=== PATIENT | female | born 1945 | race Caucasian/White ===

== ENCOUNTER 2020-07-02 11:40 | Emergency (ER) | payer MEDICARE ==
[2020-07-02 11:47] VITALS: TEMP 98.3
[2020-07-02 12:20] LABS: Basophils % (A) 1 %; Eosinophils # (A) 0.3 k/uL (0-0.7); Eosinophils % (A) 5 %; HGB 10.4 gm/dL (11.4-16.0); Hypochromasia Marked; Lymphocytes # (A) 1.9 k/uL (1.0-4.8); Lymphocytes % (A) 33 %; MCH 23.3 pg (25.0-35.0); MCHC 30.6 g/dL (31.0-37.0); MCV 76.2 fL (80.0-100.0); Mean Platelet Volume 8.6; Microcytosis Slight; Monocytes # (A) 0.4 k/uL (0-1.0); Monocytes % (A) 7 %; Neutrophils % (A) 52 %; Platelet Count 262 k/uL (150-450); RBC 4.46 m/uL (3.80-5.40); RDW 15.4 % (11.5-15.5); WBC 5.7 k/uL (3.8-10.6)
[2020-07-02 12:29] LABS: INR 0.9 (<1.2); Partial Thromboplastin Time 22.7 sec (22.0-30.0); Prothrombin Time 9.4 sec (9.0-12.0)
[2020-07-02 12:31] LABS: Albumin 3.8 g/dL (3.5-5.0); Calcium 8.5 mg/dL (8.4-10.2); Magnesium 1.9 mg/dL (1.6-2.3); Potassium 4.2 mmol/L (3.5-5.1); Total Bilirubin 0.7 mg/dL (0.2-1.3); Total Protein 6.9 g/dL (6.3-8.2)
[2020-07-02] MEDS ORDERED: ASPIRIN 325 MG TAB PO STA (12:31)
--- NOTE | 2020-07-02 12:37 | ED ---
General Adult HPI - General Chief complaint: Chest Pain Stated complaint: Chest pain Time Seen by Provider: 07/02/20 12:09 Source: patient, RN notes reviewed, old records reviewed Mode of arrival: wheelchair Limitations: no limitations - History of Present Illness Initial comments: 74-year-old female presenting for evaluation of left shoulder and arm pain. Patient has had symptoms for the past one week. She was urged to present to the emergency department by her daughter who is concerned that this may be related to her heart. She denies any chest pain. The pain stops at her clavicle. It is worse with movement. He specific injury but states she may have injured it while carrying groceries. She denies any associated symptoms of nausea vomiting or diaphoresis. No abdominal pain. No known history of coronary artery disease. - Related Data Allergies Allergy/AdvReac Type Severity Reaction Status Date / Time Latex, Natural Rubber Allergy Rash/Hives Verified 07/02/20 11:47 Review of Systems ROS Statement: Those systems with pertinent positive or pertinent negative responses have been documented in the HPI. ROS Other: All systems not noted in ROS Statement are negative. Past Medical History Past Medical History: Hypertension History of Any Multi-Drug Resistant Organisms: None Reported Past Surgical History: Bariatric Surgery, Cholecystectomy, Hysterectomy Past Psychological History: No Psychological Hx Reported Smoking Status: Never smoker Past Alcohol Use History: None Reported Past Drug Use History: None Reported General Exam Limitations: no limitations General appearance: alert, in no apparent distress Head exam: Present: atraumatic, normocephalic Eye exam: Present: normal appearance, PERRL ENT exam: Present: normal exam Neck exam: Present: normal inspection. Absent: tenderness, meningismus Respiratory exam: Present: normal lung sounds bilaterally. Absent: respiratory distress, wheezes Cardiovascular Exam: Present: regular rate, normal rhythm GI/Abdominal exam: Present: soft. Absent: distended, tenderness, guarding Extremities exam: Present: normal inspection, full ROM (Mild tenderness with range of motion of the left shoulder at the clavicle), normal capillary refill, other (Left radial pulses 2+ and symmetric) Neurological exam: Present: alert, oriented X3, CN II-XII intact. Absent: motor sensory deficit Psychiatric exam: Present: normal affect, normal mood Skin exam: Present: warm, dry, intact. Absent: cyanosis, diaphoretic Course Vital Signs 07/02/20 07/02/20 11:44 11:56 Temperature 98.3 F Pulse Rate 68 Respiratory 20 Rate Blood Pressure 209/79 190/82 O2 Sat by Pulse 99 Oximetry EKG Findings - EKG Comments: EKG Findings:: EKG: Bradycardia, rate 59, NV interval 190, QRS duration 86, QTC 411, no ST segment elevation, no definitive signs of ischemia. Medical Decision Making - Medical Decision Making 74-year-old female with left shoulder pain, pain worse with movement. No central chest pain. There was concern that this could be an anginal equivalent and this is why the patient presented to the emergency department. EKG is sinus rhythm without ischemic changes, no ST segment elevation. Chest x-ray clear of acute cardiopulmonary disease. X-ray of the left shoulder does show a rotator cuff tendinitis and osteoarthritis, no acute fracture dislocation. I did offer this patient observation for serial cardiac enzymes, cardiology consultation versus home with close outpatient follow-up. Patient and daughter prefer home with outpatient follow-up. I am reassured by the testing and believe this symptom to be muscular skeletal. - Lab Data Result diagrams: 07/02/20 12:14 07/02/20 12:14 Lab Results 07/02/20 07/02/20 07/02/20 Range/Units 12:14 12:14 12:14 WBC 5.7 (3.8-10.6) k/uL RBC 4.46 (3.80-5.40) m/uL Hgb 10.4 L (11.4-16.0) gm/dL Hct 34.0 (34.0-46.0) % MCV 76.2 L (80.0-100.0) fL MCH 23.3 L (25.0-35.0) pg MCHC 30.6 L (31.0-37.0) g/dL RDW 15.4 (11.5-15.5) % Plt Count 262 (150-450) k/uL MPV 8.6 Neutrophils % 52 % Lymphocytes % 33 % Monocytes % 7 % Eosinophils % 5 % Basophils % 1 % Neutrophils # 3.0 (1.3-7.7) k/uL Lymphocytes # 1.9 (1.0-4.8) k/uL Monocytes # 0.4 (0-1.0) k/uL Eosinophils # 0.3 (0-0.7) k/uL Basophils # 0.0 (0-0.2) k/uL Hypochromasia Marked Microcytosis Slight PT 9.4 (9.0-12.0) sec INR 0.9 (<1.2) APTT 22.7 (22.0-30.0) sec Sodium 136 L (137-145) mmol/L Potassium 4.2 (3.5-5.1) mmol/L Chloride 108 H (98-107) mmol/L Carbon Dioxide 25 (22-30) mmol/L Anion Gap 3 mmol/L BUN 14 (7-17) mg/dL Creatinine 0.79 (0.52-1.04) mg/dL Est GFR (CKD-EPI)AfAm 86 (>60 ml/min/1.73 sqM) Est GFR (CKD-EPI)NonAf 75 (>60 ml/min/1.73 sqM) Glucose 114 H (74-99) mg/dL Calcium 8.5 (8.4-10.2) mg/dL Magnesium 1.9 (1.6-2.3) mg/dL Total Bilirubin 0.7 (0.2-1.3) mg/dL AST 23 (14-36) U/L ALT 15 (4-34) U/L Alkaline Phosphatase 105 (38-126) U/L Troponin I (0.000-0.034) ng/mL NT-Pro-B Natriuret Pep pg/mL Total Protein 6.9 (6.3-8.2) g/dL Albumin 3.8 (3.5-5.0) g/dL 07/02/20 07/02/20 Range/Units 12:14 12:14 WBC (3.8-10.6) k/uL RBC (3.80-5.40) m/uL Hgb (11.4-16.0) gm/dL Hct (34.0-46.0) % MCV (80.0-100.0) fL MCH (25.0-35.0) pg MCHC (31.0-37.0) g/dL RDW (11.5-15.5) % Plt Count (150-450) k/uL MPV Neutrophils % % Lymphocytes % % Monocytes % % Eosinophils % % Basophils % % Neutrophils # (1.3-7.7) k/uL Lymphocytes # (1.0-4.8) k/uL Monocytes # (0-1.0) k/uL Eosinophils # (0-0.7) k/uL Basophils # (0-0.2) k/uL Hypochromasia Microcytosis PT (9.0-12.0) sec INR (<1.2) APTT (22.0-30.0) sec Sodium (137-145) mmol/L Potassium (3.5-5.1) mmol/L Chloride (98-107) mmol/L Carbon Dioxide (22-30) mmol/L Anion Gap mmol/L BUN (7-17) mg/dL Creatinine (0.52-1.04) mg/dL Est GFR (CKD-EPI)AfAm (>60 ml/min/1.73 sqM) Est GFR (CKD-EPI)NonAf (>60 ml/min/1.73 sqM) Glucose (74-99) mg/dL Calcium (8.4-10.2) mg/dL Magnesium (1.6-2.3) mg/dL Total Bilirubin (0.2-1.3) mg/dL AST (14-36) U/L ALT (4-34) U/L Alkaline Phosphatase (38-126) U/L Troponin I <0.012 (0.000-0.034) ng/mL NT-Pro-B Natriuret Pep 108 pg/mL Total Protein (6.3-8.2) g/dL Albumin (3.5-5.0) g/dL Disposition Clinical Impression: Hypertension, Osteoarthritis of left shoulder Disposition: HOME SELF-CARE Condition: Fair Instructions (If sedation given, give patient instructions): Chest Pain (ED), Rotator Cuff Injury (ED), Osteoarthritis (ED), Hypertension (ED) Additional Instructions: Please monitor your blood pressure at home, create a long blood pressures and follow up with her primary care physician. Is patient prescribed a controlled substance at d/c from ED?: No Referrals: None,Stated [REFERRING] - 1-2 days Juliano Kumar MD [STAFF PHYSICIAN] - 1-2 days Time of Disposition: 13:08
--- NOTE | 2020-07-02 12:46 | XR ---
EXAMINATION TYPE: XR chest 2V DATE OF EXAM: 07/02/2020 COMPARISON: None HISTORY: 74-year-old female with chest pain TECHNIQUE: PA and lateral views FINDINGS: Heart normal size. Aorta and pulmonary vasculature within normal limits. No consolidation or pleural effusion. Subtle rounded retrocardiac density. IMPRESSION: No acute cardiopulmonary process. Possible small hiatal hernia.
--- NOTE | 2020-07-02 12:47 | XR ---
EXAMINATION TYPE: XR shoulder complete LT DATE OF EXAM: 07/02/2020 Comparison: None Clinical History: [age] year-old female pain Findings: Mild degenerative change at the AC joint. Subacromial space is preserved. No tendinous or bursal calc ifications. Bony irregularity and sclerosis of the greater tuberosity. Mild degenerative spurring at the inferior humeral head. No acute fracture, subluxation, or dislocation. Impression: 1. Bony changes compatible with chronic rotator cuff tendinopathy. 2. Mild degenerative spurring at the glenohumeral joint. 3. No acute osseous abnormality seen.
[2020-07-02 13:36] VITALS: BP 198/87; PULSE 57; RESP 17
== END 2020-07-02 13:41 | disposition home or self-care (01) ==
LOC: EC 11:40
DX: I10 Essential (primary) hypertension (principal); M19.012 Primary osteoarthritis, left shoulder; M77.8 Other enthesopathies, not elsewhere classified; Z91.040 Latex allergy status; Z98.84 Bariatric surgery status
CPT/HCPCS: 36415; 71046; 80053; 83735; 83880; 84484; 85025; 85610; 85730; 93005; 99285

== ENCOUNTER 2020-09-23 10:55 | Emergency (ER) | payer MEDICARE, OTHER ==
[2020-09-23] MEDS ORDERED: KETOROLAC 15 MG/ML 1 ML VIAL IM STA (11:19)
--- NOTE | 2020-09-23 11:36 | XR ---
EXAMINATION TYPE: XR knee complete RT DATE OF EXAM: 09/23/2020 COMPARISON: None HISTORY: Pain twisted knee TECHNIQUE: Three-view right knee FINDINGS: There is loss of the medial compartment joint space. Medial tibial plateau and femoral cond ylar spurring is present. Bipartite patella appears to be present. There is loss of the patellofemora l joint space. No joint effusion is evident. IMPRESSION: 1. Loss of the medial compartment joint space and patellofemoral joint space compatible with moderat e to advanced degenerative joint changes. 2. No acute osseous abnormality evident.
--- NOTE | 2020-09-23 11:44 | ED ---
General Adult HPI - General Chief complaint: Extremity Injury, Lower Stated complaint: knee pain Time Seen by Provider: 09/23/20 11:03 Source: patient Mode of arrival: wheelchair Limitations: no limitations - History of Present Illness Initial comments: 75-year-old female with a past medical history of hyperlipidemia, hypertension, anemia presents to the emergency room for a chief complaint of right knee pain. Patient reports that yesterday she was trying to get her out of bed. States she was pulling him and twisted her right knee. Patient reports that she has difficulty walking on the knee. She is able to bend her knee however this does elicit pain. No fevers or chills. No previous knee surgeries.Patient has no other complaints at this time including shortness of breath, chest pain, abdominal pain, nausea or vomiting, headache, or visual changes. - Related Data Allergies Allergy/AdvReac Type Severity Reaction Status Date / Time Latex, Natural Rubber Allergy Rash/Hives Verified 09/23/20 11:01 Review of Systems ROS Statement: Those systems with pertinent positive or pertinent negative responses have been documented in the HPI. ROS Other: All systems not noted in ROS Statement are negative. Past Medical History Past Medical History: Hyperlipidemia, Hypertension Additional Past Medical History / Comment(s): Anemia History of Any Multi-Drug Resistant Organisms: None Reported Past Surgical History: Bariatric Surgery, Cholecystectomy, Hysterectomy Past Psychological History: No Psychological Hx Reported Smoking Status: Never smoker Past Alcohol Use History: None Reported Past Drug Use History: None Reported General Exam Limitations: no limitations General appearance: alert, in no apparent distress Head exam: Present: atraumatic, normocephalic, normal inspection Eye exam: Present: normal appearance, PERRL, EOMI. Absent: scleral icterus, conjunctival injection ENT exam: Present: normal exam, mucous membranes moist Neck exam: Present: normal inspection, full ROM. Absent: tenderness Respiratory exam: Present: normal lung sounds bilaterally. Absent: respiratory distress, wheezes Cardiovascular Exam: Present: regular rate, normal rhythm, normal heart sounds GI/Abdominal exam: Present: soft, normal bowel sounds. Absent: distended, tenderness Extremities exam: Present: tenderness (Tenderness noted to the lateral aspect of the right knee.), normal capillary refill (Capillary refill less than 2 seconds, DP pulse 2+.), other (Sensation intact.). Absent: full ROM (Patient able to flex right knee 45, extension to neutral position.), joint swelling (No significant edema noted on the knee. No erythema or increased warmth.) Course Vital Signs 09/23/20 10:57 Temperature 98.6 F Pulse Rate 60 Respiratory 20 Rate Blood Pressure 198/70 O2 Sat by Pulse 99 Oximetry Medical Decision Making - Medical Decision Making Vitals are stable. Patient is hypertensive likely secondary to pain. Patient injured her knee yesterday when trying to picker tender her . Physical exam does reveal difficulty ambulating. Patient is able to flex knee to 45 and extension to neutral position. No erythema or increased warmth of the knee. Neurovascular status intact right lower extremity. X-ray of the right knee does reveal loss of the medial compartment joint space and patellofemoral joint space compatible with moderate to advanced degenerative joint changes. No acute osseous abnormality evident. At this time patient will be wrapped with an Andriy wrap. She will follow-up with orthopedics. Daughter can help her at home for pain. She will return to the emergency room for any worsening symptoms. Disposition Clinical Impression: Knee pain, right Disposition: HOME SELF-CARE Condition: Good Instructions (If sedation given, give patient instructions): Knee Pain (ED) Additional Instructions: Please take Motrin or Tylenol for pain. Please follow-up with the orthopedics by calling today for earliest appointment. Use Andriy wrap as needed. Return for any other worsening symptoms. Is patient prescribed a controlled substance at d/c from ED?: No Referrals: Nonstaff,Physician [Primary Care Provider] - 1-2 days Florentino Kurtz MD [STAFF PHYSICIAN] - 1-2 days Time of Disposition: 11:43
[2020-09-23 12:33] VITALS: BP 138/61; PULSE 61; RESP 16; TEMP 98.1
== END 2020-09-23 12:30 | disposition home or self-care (01) ==
LOC: EC 10:55
DX: M25.561 Pain in right knee (principal); R26.2 Difficulty in walking, not elsewhere classified; Z91.040 Latex allergy status
CPT/HCPCS: 73562; 99283; 96372; J1885

== ENCOUNTER 2020-11-11 06:13 | Observation (INO) | payer MEDICARE, OTHER ==
[2020-11-11] MEDS ORDERED: PANTOPRAZOLE 40 MG/10 ML VIAL IVP STA (06:20)
[2020-11-11 06:37] LABS: Anisocytosis Slight; Basophils % (A) 0 %; Eosinophils # (A) 0.1 k/uL (0-0.7); Eosinophils % (A) 1 %; HCT 30.5 % (34.0-46.0); Hypochromasia Slight; Lymphocytes # (A) 1.1 k/uL (1.0-4.8); Lymphocytes % (A) 8 %; MCH 24.6 pg (25.0-35.0); MCHC 32.8 g/dL (31.0-37.0); Microcytosis Slight; Monocytes # (A) 0.7 k/uL (0-1.0); Monocytes % (A) 5 %; Neutrophils # (A) 11.4 k/uL (1.3-7.7); Neutrophils % (A) 85 %; Platelet Count 337 k/uL (150-450); RBC 4.06 m/uL (3.80-5.40); RDW 16.3 % (11.5-15.5); WBC 13.4 k/uL (3.8-10.6)
[2020-11-11 06:47] LABS: Albumin 2.6 g/dL (3.5-5.0); Calcium 8.4 mg/dL (8.4-10.2); Magnesium 1.6 mg/dL (1.6-2.3); Total Bilirubin 0.7 mg/dL (0.2-1.3); Total Protein 5.4 g/dL (6.3-8.2)
[2020-11-11 07:09] LABS: INR 0.9 (<1.2); Prothrombin Time 10.2 sec (9.0-12.0)
[2020-11-11 07:18] LABS: Partial Thromboplastin Time 20.4 sec (22.0-30.0)
--- NOTE | 2020-11-11 07:26 | ED ---
GI Bleed HPI - General Chief complaint: GI Bleed Stated complaint: GI Bleed Time Seen by Provider: 11/11/20 06:16 Source: patient, EMS Mode of arrival: EMS Limitations: no limitations - History of Present Illness Initial comments: 75-year-old female patient presents to the emergency department today for evaluation of dizziness and weakness. Patient also had an episode of bright red bloody vomitus. States she does have a history of gastric ulcer and did run out of her medication this week. Denies history of GI bleed. Denies use of anticoagulant or antiplatelet medications. Denies any abdominal pain. Denies dark, black, or bloody stools. Reports she feels dizzy especially when sitting up or standing. Patient denies any recent rash, fever, chills, cough, shortness of breath, chest pain, back pain, numbness, tingling, dizziness, weakness, he maturia, dysuria, urinary urgency, urinary frequency, headache, visual changes, or any other complaints. Patient apparently did have low blood pressures in EMS. - Related Data Home Medications Medication Instructions Recorded Confirmed Ascorbic Acid [Vitamin C] 1,000 mg PO DAILY 11/11/20 11/11/20 Cholecalciferol [Vitamin D3 (25 50 mcg PO DAILY 11/11/20 11/11/20 Mcg = 1000 Iu)] Enalapril [Vasotec] 5 mg PO BID 11/11/20 11/11/20 Fluticasone Nasal [place] [Flonase 1 - 2 spr EA NOSTRIL DAILY 11/11/20 11/11/20 Nasal [place]] Iron Polysaccharide Complex 150 mg PO Q48H 11/11/20 11/11/20 [Ferrex 150] Loratadine [Claritin] 10 mg PO DAILY 11/11/20 11/11/20 Menthol [Biofreeze] 1 applic TOPICAL BID PRN 11/11/20 11/11/20 Rosuvastatin [Crestor] 10 mg PO DAILY 11/11/20 11/11/20 Zinc 50 mg PO DAILY 11/11/20 11/11/20 amLODIPine [Norvasc] 2.5 mg PO DAILY 11/11/20 11/11/20 guaiFENesin-DM 600/30MG [Mucinex 1 tab PO Q12HR 11/11/20 11/11/20 Dm] Allergies Allergy/AdvReac Type Severity Reaction Status Date / Time Latex, Natural Rubber Allergy Rash/Hives Verified 11/11/20 07:33 hydrocodone [From Vicodin] AdvReac Nausea Verified 11/11/20 07:33 Review of Systems ROS Statement: Those systems with pertinent positive or pertinent negative responses have been documented in the HPI. ROS Other: All systems not noted in ROS Statement are negative. Past Medical History Past Medical History: Hyperlipidemia, Hypertension Additional Past Medical History / Comment(s): Anemia History of Any Multi-Drug Resistant Organisms: None Reported Past Surgical History: Bariatric Surgery, Cholecystectomy, Hysterectomy Past Psychological History: No Psychological Hx Reported Smoking Status: Never smoker Past Alcohol Use History: None Reported Past Drug Use History: None Reported General Exam Limitations: no limitations General appearance: alert, in no apparent distress, other (This is a well- developed, well-nourished adult female patient in no acute distress. Vital signs upon presentation are temperature 97.8F, pulse 94, respirations 16, blood pressure 101/51, pulse ox 100% on room air.) Eye exam: Present: normal appearance, PERRL, EOMI. Absent: scleral icterus, conjunctival injection, periorbital swelling ENT exam: Present: normal exam, normal oropharynx, mucous membranes moist Respiratory exam: Present: normal lung sounds bilaterally. Absent: respiratory distress, wheezes, rales, rhonchi, stridor Cardiovascular Exam: Present: regular rate, normal rhythm, normal heart sounds. Absent: systolic murmur, diastolic murmur, rubs, gallop, clicks GI/Abdominal exam: Present: soft, normal bowel sounds. Absent: distended, tende rness, guarding, rebound, rigid Neurological exam: Present: alert, oriented X3, CN II-XII intact Psychiatric exam: Present: normal affect, normal mood Skin exam: Present: warm, dry, intact, pallor. Absent: rash Course Vital Signs 11/11/20 11/11/20 11/11/20 06:17 06:23 07:34 Temperature 97.8 F Pulse Rate 94 82 71 Respiratory 16 18 18 Rate Blood Pressure 101/51 123/53 118/54 O2 Sat by Pulse 100 100 98 Oximetry Medical Decision Making - Medical Decision Making 75-year-old male patient presented to the emergency department today for evaluation of dizziness and weakness. Did have one episode of bright red bloody vomitus. Does have history of ulcer. Physical examination revealed soft nontender abdomen. Vital signs remained stable while in the emergency department. Apparently she did have a couple low blood pressures on EMS. Labs reviewed and did reveal hemoglobin 10.0. Coags normal. She was given IV Protonix and IV fluids. Type and screen. She'll be admitted to the hospital for upper GI bleed. GI consulted. Case discussed with my attending Dr. Christianson. - Lab Data Result diagrams: 11/11/20 06:28 11/11/20 06:28 Lab Results 11/11/20 11/11/20 11/11/20 Range/Units 06:24 06:25 06:28 WBC 13.4 H (3.8-10.6) k/uL RBC 4.06 (3.80-5.40) m/uL Hgb 10.0 L (11.4-16.0) gm/dL Hct 30.5 L (34.0-46.0) % MCV 75.0 L (80.0-100.0) fL MCH 24.6 L (25.0-35.0) pg MCHC 32.8 (31.0-37.0) g/dL RDW 16.3 H (11.5-15.5) % Plt Count 337 (150-450) k/uL MPV 7.0 Neutrophils % 85 % Lymphocytes % 8 % Monocytes % 5 % Eosinophils % 1 % Basophils % 0 % Neutrophils # 11.4 H (1.3-7.7) k/uL Lymphocytes # 1.1 (1.0-4.8) k/uL Monocytes # 0.7 (0-1.0) k/uL Eosinophils # 0.1 (0-0.7) k/uL Basophils # 0.0 (0-0.2) k/uL Hypochromasia Slight Anisocytosis Slight Microcytosis Slight PT (9.0-12.0) sec INR (<1.2) APTT (22.0-30.0) sec Sodium (137-145) mmol/L Potassium (3.5-5.1) mmol/L Chloride (98-107) mmol/L Carbon Dioxide (22-30) mmol/L Anion Gap mmol/L BUN (7-17) mg/dL Creatinine (0.52-1.04) mg/dL Est GFR (CKD-EPI)AfAm (>60 ml/min/1.73 sqM) Est GFR (CKD-EPI)NonAf (>60 ml/min/1.73 sqM) Glucose (74-99) mg/dL Calcium (8.4-10.2) mg/dL Magnesium (1.6-2.3) mg/dL Total Bilirubin (0.2-1.3) mg/dL AST (14-36) U/L ALT (4-34) U/L Alkaline Phosphatase (38-126) U/L Troponin I (0.000-0.034) ng/mL Total Protein (6.3-8.2) g/dL Albumin (3.5-5.0) g/dL Lipase (23-300) U/L Blood Type A Positive Blood Type Confirm A Positive Blood Type Recheck No Previous Record Bld Type Recheck Status CABO Indicated Antibody Screen NEGATIVE Spec Expiration Date 11/14/2020 - 232711/11/20 11/11/20 11/11/20 Range/Units 06:28 06:28 06:28 WBC (3.8-10.6) k/uL RBC (3.80-5.40) m/uL Hgb (11.4-16.0) gm/dL Hct (34.0-46.0) % MCV (80.0-100.0) fL MCH (25.0-35.0) pg MCHC (31.0-37.0) g/dL RDW (11.5-15.5) % Plt Count (150-450) k/uL MPV Neutrophils % % Lymphocytes % % Monocytes % % Eosinophils % % Basophils % % Neutrophils # (1.3-7.7) k/uL Lymphocytes # (1.0-4.8) k/uL Monocytes # (0-1.0) k/uL Eosinophils # (0-0.7) k/uL Basophils # (0-0.2) k/uL Hypochromasia Anisocytosis Microcytosis PT 10.2 (9.0-12.0) sec INR 0.9 (<1.2) APTT 20.4 L (22.0-30.0) sec Sodium 129 L (137-145) mmol/L Potassium 4.0 (3.5-5.1) mmol/L Chloride 99 (98-107) mmol/L Carbon Dioxide 20 L (22-30) mmol/L Anion Gap 10 mmol/L BUN 12 (7-17) mg/dL Creatinine 0.91 (0.52-1.04) mg/dL Est GFR (CKD-EPI)AfAm 71 (>60 ml/min/1.73 sqM) Est GFR (CKD-EPI)NonAf 62 (>60 ml/min/1.73 sqM) Glucose 225 H (74-99) mg/dL Calcium 8.4 (8.4-10.2) mg/dL Magnesium 1.6 (1.6-2.3) mg/dL Total Bilirubin 0.7 (0.2-1.3) mg/dL AST 21 (14-36) U/L ALT 11 (4-34) U/L Alkaline Phosphatase 88 (38-126) U/L Troponin I 0.030 (0.000-0.034) ng/mL Total Protein 5.4 L (6.3-8.2) g/dL Albumin 2.6 L (3.5-5.0) g/dL Lipase 120 (23-300) U/L Blood Type Blood Type Confirm Blood Type Recheck Bld Type Recheck Status Antibody Screen Spec Expiration Date - EKG Data -: EKG Interpreted by Me EKG Comments: EKG obtained at 625 shows sinus rhythm with PACs. Ventricular rate 92, NC interval 174, QRS duration 84, QT 382, QTc 472. No evidence of ST elevation or depression. Disposition Clinical Impression: Upper GI bleed Disposition: ADMITTED IP TO THIS [facility] Condition: Serious Referrals: Nonstaff,Physician [Primary Care Provider] - 1-2 days Decision to Admit Reason: Admit from EC Decision Date: 11/11/20 Decision Time: 07:44
[2020-11-11] MEDS ORDERED: NALOXONE 0.4 MG/ML 1 ML VIAL IV PRN (07:42)
[2020-11-11] MEDS ORDERED: ONDANSETRON 4 MG/2 ML VIAL IVP PRN (07:42)
[2020-11-11 10:13] LABS: Anisocytosis Slight; HGB 9.7 gm/dL (11.4-16.0); Hypochromasia Slight; MCH 25.1 pg (25.0-35.0); MCHC 33.5 g/dL (31.0-37.0); MCV 74.9 fL (80.0-100.0); Mean Platelet Volume 8.1; Microcytosis Slight; Platelet Count 304 k/uL (150-450); RBC 3.87 m/uL (3.80-5.40); RDW 16.4 % (11.5-15.5); WBC 14.8 k/uL (3.8-10.6)
[2020-11-11] MEDS: PANTOPRAZOLE 40 MG/10 ML VIAL IV SCH ×2 (11:47→19:47)
[2020-11-11 14:14] LABS: Anisocytosis Slight; HCT 28.1 % (34.0-46.0); HGB 9.4 gm/dL (11.4-16.0); Hypochromasia Slight; MCHC 33.5 g/dL (31.0-37.0); MCV 74.7 fL (80.0-100.0); Microcytosis Slight; Platelet Count 288 k/uL (150-450); RBC 3.77 m/uL (3.80-5.40); RDW 16.4 % (11.5-15.5); WBC 13.7 k/uL (3.8-10.6)
[2020-11-11] MEDS: SODIUM CHLORIDE 0.9% 1,000 ML IV SCH (15:16)
--- NOTE | 2020-11-11 16:29 | CONS ---
CONSULTATION DATE OF DICTATION: 11/11/2020 REASON FOR CONSULTATION: Hematemesis. HISTORY OF PRESENT ILLNESS: The patient is a 75-year-old pleasant white female who came to the emergency room yesterday after having several episodes of hematemesis. The patient apparently had a fall at home, and following that she became somewhat dizzy and started having several episodes of dry heaves. Following that she started throwing up bright red blood; she had several episodes, about 7 or 8, of them. She went to the emergency room and subsequently was admitted to the hospital for further evaluation. She never had these symptoms in the past. She was diagnosed with peptic ulcer disease in 2014. She denies any recent NSAID use. She reports no abdominal pain, no further episodes of nausea or vomiting since being in the hospital. Her initial hemoglobin was 10.0 and is subsequently down to 9.7 g/dL. PAST MEDICAL HISTORY: Significant for hypertension, hyperlipidemia. PAST SURGICAL HISTORY: Cholecystectomy, hysterectomy, bariatric surgery. MEDICATIONS: Medications at home include vitamin C, vitamin D, Vasotec, Flonase, Claritin, Crestor, zinc, Norvasc Mucinex, iron sulfate. ALLERGIES: LATEX AND VICODIN. SOCIAL HISTORY: No smoking. No alcohol use. FAMILY HISTORY: Unremarkable. REVIEW OF SYSTEMS: CARDIOPULMONARY: No chest pain or shortness of breath. GENITOURINARY: No dysuria or hematuria. MUSCULOSKELETAL: Unremarkable. SKIN: Unremarkable. ENDOCRINE: Unremarkable. PSYCHIATRIC: Unremarkable. NEUROLOGY: Recent fall with some dizziness. ENT/VISION: Unremarkable. CONSTITUTIONAL: No recent weight loss. No fever, chills, night sweats. HEMATOLOGY: Mild anemia. PHYSICAL EXAMINATION: Blood pressure 129/70, pulse rate 81, temperature 98.7. HEENT examination unremarkable. Conjunctivae pink. Sclerae anicteric. Oral cavity no lesions. NECK: No JVD or lymph node enlargement. CHEST: Clear to auscultation. HEART: Regular rate and rhythm. ABDOMEN: Soft. Bowel sounds are positive. No organomegaly. EXTREMITIES: No pedal edema. NEUROLOGIC: Alert and oriented x3. No focal deficits. LABS: WBC 13.4, hemoglobin 10; it dropped to 9.4 g/dL. BUN is 12, creatinine 0.91, platelets 337. PT and INR within normal limits. IMPRESSION: 1. Acute upper gastrointestinal bleed with multiple episodes of hematemesis since yesterday. The patient had 7 or 8 episodes of hematemesis. She dropped her hemoglobin from 10 to 9.4 g/dL. Prior history of peptic ulcer disease diagnosed in 2015. Currently hemodynamically stable. No active bleeding since being in the emergency room. Rule out Tami-Bey tear. Rule out peptic ulcer disease. 2. Recent fall at home. 3. History of hypertension. 4. History of hyperlipidemia. RECOMMENDATIONS: 1. Continue with Protonix 40 mg twice daily. 2. Clear liquid diet. 3. Will proceed with an EGD tomorrow. Discussed with the patient risks, benefits and complications, and she is agreeable to it. 4. Monitor labs closely. Thank you for this consultation. MMODL / IJN: [id number] /
--- NOTE | 2020-11-11 16:57 | P.HPIM ---
History of Present Illness H&P Date: 11/11/20 Chief Complaint: GI bleed 75-year-old female patient presents to the emergency department today for evaluation of dizziness and weakness. Patient also had an episode of bright red bloody vomitus. States she does have a history of gastric ulcer and did run out of her medication this week. Denies history of GI bleed. Denies use of anticoagulant or antiplatelet medications. Denies any abdominal pain. Denies dark, black, or bloody stools. Reports she feels dizzy especially when sitting up or standing. Patient denies any recent rash, fever, chills, cough, shortness of breath, chest pain, back pain, numbness, tingling, dizziness, weakness, hematuria, dysuria, urinary urgency, urinary frequency, headache, visual changes, or any other complaints. Patient apparently did have low blood pressures in EMS. Review of Systems REVIEW OF SYSTEMS: CONSTITUTIONAL: No fever, no malaise, no fatigue. HEENT: No recent visual problems or hearing problems. Denied any sore throat. CARDIOVASCULAR: No chest pain, orthopnea, PND, no palpitations, no syncope. PULMONARY: No shortness of breath, no cough, no hemoptysis. GASTROINTESTINAL: No diarrhea, no nausea, no vomiting, no abdominal pain. NEUROLOGICAL: No headaches, no weakness, no numbness. HEMATOLOGICAL: Denies any bleeding or petechiae. GENITOURINARY: Denies any burning micturition, frequency, or urgency. MUSCULOSKELETAL/RHEUMATOLOGICAL: Denies any joint pain, swelling, or any muscle pain. ENDOCRINE: Denies any polyuria or polydipsia. The rest of the 14-point review of systems is negative. Past Medical History Past Medical History: Eye Disorder, GI Bleed, Hyperlipidemia, Hypertension, Osteoarthritis (OA), Pneumonia, Renal Disease Additional Past Medical History / Comment(s): "Borderline diabetes", gastric ulcer with upper GI bleed, anemia, cardiac valve dx/murmur, bilateral eye glaucoma, bronchitis, osteoporosis, arthritis bilateral hands/fingers/knees, nephrolithiasis, UTIs with recent UTI. History of Any Multi-Drug Resistant Organisms: None Reported Past Surgical History: Bariatric Surgery, Cholecystectomy, Hysterectomy Additional Past Surgical History / Comment(s): Gastric bypass, EGDs, colonoscopies Past Anesthesia/Blood Transfusion Reactions: No Reported Reaction Smoking Status: Never smoker - Past Family History Father Family Medical History: Cancer, COPD, CVA/TIA, Diabetes Mellitus Additional Family Medical History / Comment(s): Father of colon cancer. Mother Family Medical History: Congestive Heart Failure (CHF) Medications and Allergies Home Medications Medication Instructions Recorded Confirmed Type Ascorbic Acid [Vitamin C] 1,000 mg PO DAILY 11/11/20 11/11/20 History Cholecalciferol [Vitamin D3 (25 50 mcg PO DAILY 11/11/20 11/11/20 History Mcg = 1000 Iu)] Enalapril [Vasotec] 5 mg PO BID 11/11/20 11/11/20 History Fluticasone Nasal [place] [Flonase 1 - 2 spr EA NOSTRIL DAILY 11/11/20 11/11/20 History Nasal [place]] Iron Polysaccharide Complex 150 mg PO Q48H 11/11/20 11/11/20 History [Ferrex 150] Loratadine [Claritin] 10 mg PO DAILY 11/11/20 11/11/20 History Menthol [Biofreeze] 1 applic TOPICAL BID PRN 11/11/20 11/11/20 History Rosuvastatin [Crestor] 10 mg PO DAILY 11/11/20 11/11/20 History Zinc 50 mg PO DAILY 11/11/20 11/11/20 History amLODIPine [Norvasc] 2.5 mg PO DAILY 11/11/20 11/11/20 History guaiFENesin-DM 600/30MG [Mucinex 1 tab PO Q12HR 11/11/20 11/11/20 History Dm] Allergies Allergy/AdvReac Type Severity Reaction Status Date / Time Latex, Natural Rubber Allergy Rash/Hives Verified 11/11/20 07:33 hydrocodone [From Vicodin] AdvReac Nausea Verified 11/11/20 07:33 Physical Exam Vitals: Vital Signs Temp Pulse Resp BP Pulse Ox 11/11/20 11:45 79 20 114/55 98 11/11/20 09:29 74 18 127/60 98 11/11/20 07:34 71 18 118/54 98 11/11/20 06:23 82 18 123/53 100 11/11/20 06:17 97.8 F 94 16 101/51 100 Intake and Output 11/10/20 11/11/20 11/11/20 22:59 06:59 14:59 Other: Weight 115.666 kg 115.666 kg PHYSICAL EXAMINATION: GENERAL: The patient is alert and oriented x3, not in any acute distress. Well developed, well nourished. HEENT: Pupils are round and equally reacting to light. EOMI. No scleral icterus. No conjunctival pallor. Normocephalic, atraumatic. No pharyngeal erythema. No thyromegaly. CARDIOVASCULAR: S1 and S2 present. No murmurs, rubs, or gallops. PULMONARY: Chest is clear to auscultation, no wheezing or crackles. ABDOMEN: Soft, nontender, nondistended, normoactive bowel sounds. No palpable organomegaly. MUSCULOSKELETAL: No joint swelling or deformity. EXTREMITIES: No cyanosis, clubbing, or pedal edema. NEUROLOGICAL: Gross neurological examination did not reveal any focal deficits. SKIN: No rashes. Results CBC & Chem 7: 11/11/20 14:05 11/11/20 06:28 Labs: Abnormal Lab Results - Last 24 Hours (Table) 11/11/20 11/11/20 11/11/20 Range/Units 06:28 06:28 06:28 WBC 13.4 H (3.8-10.6) k/uL Hgb 10.0 L (11.4-16.0) gm/dL Hct 30.5 L (34.0-46.0) % MCV 75.0 L (80.0-100.0) fL MCH 24.6 L (25.0-35.0) pg RDW 16.3 H (11.5-15.5) % Neutrophils # 11.4 H (1.3-7.7) k/uL APTT 20.4 L (22.0-30.0) sec Sodium 129 L (137-145) mmol/L Carbon Dioxide 20 L (22-30) mmol/L Glucose 225 H (74-99) mg/dL Total Protein 5.4 L (6.3-8.2) g/dL Albumin 2.6 L (3.5-5.0) g/dL 11/11/20 Range/Units 10:00 WBC 14.8 H (3.8-10.6) k/uL Hgb 9.7 L (11.4-16.0) gm/dL Hct 29.0 L (34.0-46.0) % MCV 74.9 L (80.0-100.0) fL MCH (25.0-35.0) pg RDW 16.4 H (11.5-15.5) % Neutrophils # (1.3-7.7) k/uL APTT (22.0-30.0) sec Sodium (137-145) mmol/L Carbon Dioxide (22-30) mmol/L Glucose (74-99) mg/dL Total Protein (6.3-8.2) g/dL Albumin (3.5-5.0) g/dL Thrombosis Risk Factor Assmnt - Choose All That Apply Any of the Below Risk Factors Present?: Yes Each Factor Represents 1 point: Obesity (BMI >25) Other Risk Factors: Yes Each Risk Factor Represents 3 Points: Age 75 years or older Other congenital or acquired thrombophilia - If yes, enter type in comment: No Thrombosis Risk Factor Assessment Total Risk Factor Score: 4 Thrombosis Risk Factor Assessment Level: Moderate Risk Assessment and Plan Assessment: 1. GI bleed; GI on board; patient is started on IV Protonix; recommending to keep patient on a clear liquid diet with plans to transition to nothing by mouth at midnight for possible EGD tomorrow morning 2. Acute blood loss anemia; we will monitor I H&H every 6 hours and type crossmatch and transfuse if hemoglobin is less than 7.0 3. Hypertension; Norvasc 2.5 mg daily and Vasotec 5 mg twice a day 4. Hyperlipidemia; Crestor 10 mg daily 5. Recent COVID-19 infection; patient is pulse oximeter greater than 90% on room air; we will continue with vitamin C, vitamin D, zinc and Mucinex 600 mg one tablet every 12 hours when necessary DVT prophylaxis; SCDs only due to GI bleed CODE STATUS; full code
[2020-11-11] MEDS: guaiFENesin-DM 600/30MG 1 EACH TAB.ER.12H PO SCH (19:47)
[2020-11-12] MEDS: SODIUM CHLORIDE 0.9% 1,000 ML IV SCH (05:10)
[2020-11-12 06:46] LABS: Anisocytosis Slight; Basophils % (A) 0 %; Eosinophils # (A) 0.1 k/uL (0-0.7); Eosinophils % (A) 2 %; HCT 26.7 % (34.0-46.0); HGB 8.7 gm/dL (11.4-16.0); Hypochromasia Slight; Lymphocytes # (A) 2.2 k/uL (1.0-4.8); Lymphocytes % (A) 23 %; MCHC 32.8 g/dL (31.0-37.0); MCV 76.1 fL (80.0-100.0); Mean Platelet Volume 7.1; Microcytosis Slight; Monocytes # (A) 0.6 k/uL (0-1.0); Monocytes % (A) 6 %; Neutrophils # (A) 6.5 k/uL (1.3-7.7); Neutrophils % (A) 68 %; Platelet Count 247 k/uL (150-450); RDW 16.6 % (11.5-15.5); WBC 9.6 k/uL (3.8-10.6)
[2020-11-12 06:58] LABS: African American GFR (CKD) >90 (>60 ml/min/1.73 sqM); Anion Gap 5 mmol/L; Blood Urea Nitrogen 20 mg/dL (7-17); Calcium 8.3 mg/dL (8.4-10.2); Carbon Dioxide 23 mmol/L (22-30); Chloride 106 mmol/L (98-107); Glucose 103 mg/dL (74-99); Non-African American GFR(CKD) 78 (>60 ml/min/1.73 sqM); Potassium 4.2 mmol/L (3.5-5.1); Sodium 134 mmol/L (137-145)
[2020-11-12] MEDS ORDERED: ATORVASTATIN 20 MG TAB PO SCH (09:00)
[2020-11-12] MEDS ORDERED: CHOLECALCIFEROL 25 MCG (1000 IU) TABLET PO SCH (09:00)
[2020-11-12] MEDS ORDERED: lisinopriL 20 MG TAB PO SCH (09:00)
[2020-11-12] MEDS ORDERED: ASCORBIC ACID 500 MG TAB PO SCH (09:00)
[2020-11-12] MEDS ORDERED: FLUTICASONE 50MCG/SPRAY NASAL 16GM EA NOSTRIL SCH (09:00)
[2020-11-12] MEDS ORDERED: amLODIPine 2.5 MG TAB PO SCH (09:00)
[2020-11-12] MEDS ORDERED: ZINC SULFATE 220 MG CAP PO SCH (09:00)
[2020-11-12] MEDS ORDERED: LORATADINE 10 MG TAB PO SCH (09:00)
[2020-11-12] MEDS ORDERED: PROPOFOL 10 MG/ML 20 ML VIAL IV ONE (09:17)
[2020-11-12] MEDS ORDERED: LIDOCAINE 1% INJ 10MG/ML (20 ML MDV) ONE (09:17)
[2020-11-12] MEDS ORDERED: IV FLUID CONTINUATION 1,000 ML IV ONE (09:18)
--- NOTE | 2020-11-12 09:33 | P.PCN ---
Date of Procedure: 11/12/20 Procedure(s) Performed: BRIEF HISTORY: Patient is a 75-year-old, pleasant, white female admitted hospital with acute upper GI bleed. She had multiple episodes of hematemesis yesterday. Hemoglobin was 12 g/dL. He has history of gastric bypass surgery several years ago. She is scheduled for an upper endoscopy to evaluate further.. PROCEDURE PERFORMED: Esophagogastroduodenoscopy with biopsy. PREOPERATIVE DIAGNOSIS: Acute upper GI bleed. IV sedation per anesthesia. PROCEDURE: After informed consent was obtained, the patient was brought into the endoscopy unit. IV sedation was administered by Anesthesia under continuous monitoring. Initially the Olympus GIF-140 video endoscope was inserted into the mouth. Esophagus intubated without any difficulty. It was gradually advanced into the gastric pouch. There was mild gastritis of the gastric pouch noted. There was evidence of Ayesha-en-Y anastomosis but there was a large 3-4 cm deep ulcerations with no active bleeding noted. Biopsies were done from the margin of the ulcer. The scope was advanced into the jejunum that appeared normal. 60 cm of the jejunum was visualized and appeared normal. At this time the scope was then withdrawn into the esophagus. The GE junction was located at 39 cm from the incisors. The esophagus appeared normal. There were no erosions or ulcerations seen and the patient tolerated the procedure well. IMPRESSION: 1. 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 2. Mild gastritis of the gastric pouch. RECOMMENDATIONS: The findings of this examination were discussed with the patient . Await biopsy results. She'll be continued on Protonix 40 mg daily. Diet will be advanced as tolerated..
[2020-11-12] MEDS: guaiFENesin-DM 600/30MG 1 EACH TAB.ER.12H PO SCH (11:44)
[2020-11-12] MEDS: PANTOPRAZOLE 40 MG/10 ML VIAL IV SCH (11:47)
[2020-11-12] MEDS ORDERED: IRON POLYSACCHARIDES COMPLEX 150 MG CAP PO SCH (12:00)
[2020-11-12 12:06] VITALS: BMI 39.9
[2020-11-12 13:51] VITALS: BP 135/80; PULSE 66; RESP 18; TEMP 98
--- NOTE | 2020-11-20 07:47 | P.DS ---
Providers Date of admission: 11/11/20 07:54 Expected date of discharge: 11/12/20 Attending physician: Wm Mcdonald Consults: 11/11/20 07:42 Consult Physician Routine Consulting Provider: Kimi Langston Consult Reason/Comments: Upper GI bleed Do you want consulting provider notified?: Yes Primary care physician: Physician Nonstaff Hospital Course: 75-year-old, pleasant, white female admitted hospital with acute upper GI bleed. She had multiple episodes of hematemesis yesterday. Hemoglobin was 12 g/dL. He has history of gastric bypass surgery several years ago. She is scheduled for an upper endoscopy to evaluate further.. Patient was seen by GI; Esophagogastroduodenoscopy with biopsy. IMPRESSION: 1. 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 2. Mild gastritis of the gastric pouch. RECOMMENDATIONS: The findings of this examination were discussed with the patient . Await biopsy results. She'll be continued on Protonix 40 mg daily. Diet will be advanced as tolerated.. Patient Condition at Discharge: Serious Plan - Discharge Summary Discharge Rx Participant: No New Discharge Prescriptions: New Pantoprazole Sodium [Protonix] 40 mg PO AC-BID #60 tablet. Pantoprazole Sodium [Protonix] 40 mg PO AC-BID #60 tablet. Continue Zinc 50 mg PO DAILY Rosuvastatin [Crestor] 10 mg PO DAILY Loratadine [Claritin] 10 mg PO DAILY Iron Polysaccharide Complex [Ferrex 150] 150 mg PO Q48H Ascorbic Acid [Vitamin C] 1,000 mg PO DAILY amLODIPine [Norvasc] 2.5 mg PO DAILY Menthol [Biofreeze] 1 applic TOPICAL BID PRN PRN Reason: Pain Fluticasone Nasal [place] [Flonase Nasal [place]] 1 - 2 spr EA NOSTRIL DAILY Cholecalciferol [Vitamin D3 (25 Mcg = 1000 Iu)] 50 mcg PO DAILY guaiFENesin-DM 600/30MG [Mucinex Dm] 1 tab PO Q12HR Enalapril [Vasotec] 5 mg PO BID Discharge Medication List Ascorbic Acid [Vitamin C] 1,000 mg PO DAILY 11/11/20 [History] Cholecalciferol [Vitamin D3 (25 Mcg = 1000 Iu)] 50 mcg PO DAILY 11/11/20 [History] Enalapril [Vasotec] 5 mg PO BID 11/11/20 [History] Fluticasone Nasal [place] [Flonase Nasal [place]] 1 - 2 spr EA NOSTRIL DAILY 11/11/20 [History] Iron Polysaccharide Complex [Ferrex 150] 150 mg PO Q48H 11/11/20 [History] Loratadine [Claritin] 10 mg PO DAILY 11/11/20 [History] Menthol [Biofreeze] 1 applic TOPICAL BID PRN 11/11/20 [History] Rosuvastatin [Crestor] 10 mg PO DAILY 11/11/20 [History] Zinc 50 mg PO DAILY 11/11/20 [History] amLODIPine [Norvasc] 2.5 mg PO DAILY 11/11/20 [History] guaiFENesin-DM 600/30MG [Mucinex Dm] 1 tab PO Q12HR 11/11/20 [History] Pantoprazole Sodium [Protonix] 40 mg PO AC-BID #60 tablet. 11/12/20 [Rx] Pantoprazole Sodium [Protonix] 40 mg PO AC-BID #60 tablet. 11/12/20 [Rx] Follow up Appointment(s)/Referral(s): Kimi Langston MD [STAFF PHYSICIAN] - 1 Week Patient Instructions/Handouts: Coronavirus Disease 2019 (COVID-19), Peptic Ulcer (GEN) Discharge Disposition: HOME SELF-CARE
== END 2020-11-12 14:36 | disposition home or self-care (01) ==
LOC: SUPCPDRO 06:13 → EC 06:13 → 4SSUR 07:54 → INTOOBSV 07:54 → 4SSUR 12:13 → 6NMEDSUR 14:03 → UNDODISIN 11-12 14:36
PROVIDERS: ADMIT Internal Medicine; ATTEND Internal Medicine
DX: K28.9 Gastrojejunal ulcer, unspecified as acute or chronic, without hemorrhage or perforation (principal); K29.70 Gastritis, unspecified, without bleeding; K27.9 Peptic ulcer, site unspecified, unspecified as acute or chronic, without hemorrhage or perforation; I10 Essential (primary) hypertension; D62 Acute posthemorrhagic anemia; E78.5 Hyperlipidemia, unspecified; W19.XXXA Unspecified fall, initial encounter; Y92.019 Unspecified place in single-family (private) house as the place of occurrence of the external cause; M81.0 Age-related osteoporosis without current pathological fracture; M19.041 Primary osteoarthritis, right hand; M19.042 Primary osteoarthritis, left hand; H40.9 Unspecified glaucoma; J40 Bronchitis, not specified as acute or chronic; Z79.899 Other long term (current) drug therapy; Z79.51 Long term (current) use of inhaled steroids; Z88.5 Allergy status to narcotic agent; Z91.040 Latex allergy status; Z20.822 Contact with and (suspected) exposure to COVID-19; Z91.14 Patient's other noncompliance with medication regimen; Z87.440 Personal history of urinary (tract) infections; Z98.84 Bariatric surgery status; Z90.710 Acquired absence of both cervix and uterus; Z90.49 Acquired absence of other specified parts of digestive tract; Z87.442 Personal history of urinary calculi; Z86.16 Personal history of COVID-19; Z82.5 Family history of asthma and other chronic lower respiratory diseases; Z83.3 Family history of diabetes mellitus; Z82.49 Family history of ischemic heart disease and other diseases of the circulatory system; Z80.0 Family history of malignant neoplasm of digestive organs
CPT/HCPCS: 96374; 99285; 36415; 93005; 86900; 86901; 88305; 80053; 80048; 83690; 83735; 84484; 85025 ×2; 85027; 85610; 85730; 86850; 87635; 43239 ×2; G0378 ×2; J2001; J2704; C9113 ×2

== ENCOUNTER → 2021-02-07 | Outpatient (CLI) | payer MEDICARE ==
[2021-02-07 18:42] LABS: HCT 27.5 % (37.2-46.3); HGB 7.7 g/dL (12.0-15.0); MCH 20.6 pg (27.0-32.0); MCV 73.5 fL (80.0-97.0); Mean Platelet Volume 11.5 fL (9.5-12.2); Platelet Count 321 X 10*3/uL (140-440); RBC 3.74 X 10*6/uL (4.10-5.20); RDW 16.1 % (11.5-14.5); WBC 6.64 X 10*3/uL (4.50-10.00)
[2021-02-07 19:24] LABS: Basophils # (A) 0.05 X 10*3/uL (0.00-0.10); Basophils % (A) 0.8 %; Eosinophils # (A) 0.14 X 10*3/uL (0.04-0.35); Eosinophils % (A) 2.1 %; Lymphocytes # (A) 2.65 X 10*3/uL (0.90-5.00); Lymphocytes % (A) 39.9 %; Monocytes # (A) 0.67 X 10*3/uL (0.20-1.00); Monocytes % (A) 10.1 %; Neutrophils # (A) 3.11 X 10*3/uL (1.80-7.70); Neutrophils % (A) 46.8 %
[2021-02-07 19:25] LABS: Hypochromasia (M) 2+
== END | disposition home or self-care (01) ==
LOC: LABWHC1 11:48
PROVIDERS: ATTEND Nurse Practitioner
DX: K25.4 Chronic or unspecified gastric ulcer with hemorrhage (principal)
CPT/HCPCS: 36415; 85025

== ENCOUNTER 2021-02-10 09:13 | Day surgery (SDC) | payer MEDICARE ==
[2021-02-08 15:23] VITALS: BMI 42.2
[~2021-02-10 09:13] MED LIST: LACTATED RINGERS 1,000 ML IV SCH; LIDOCAINE 1% (10MG/ML) FOR IV START INTRADERMA PRN
[2021-02-10 09:28] VITALS: TEMP 97.5
[2021-02-10] MEDS ORDERED: PROPOFOL 10 MG/ML 20 ML VIAL IV ONE (10:18)
[2021-02-10] MEDS ORDERED: LIDOCAINE 1% INJ 10MG/ML (20 ML MDV) ONE (10:18)
--- NOTE | 2021-02-10 10:29 | P.PCN ---
Date of Procedure: 02/10/21 Procedure(s) Performed: BRIEF HISTORY: Patient is a 75-year-old, pleasant, white female scheduled for an upper endoscopy as a part of follow-up of gastric anastomotic ulcer that was diagnosed in October 2020 when she presented with acute upper GI bleed. Upper endoscopy revealed 3-4 cm anastomotic ulcer at the Ayesha-en-Y anastomosis. She has since been on Protonix 40 mg daily and she is scheduled for repeat upper endoscopy to evaluate the ulcerated patient remains on Protonix 40 mg daily. Denies any abdominal pain. Her episodes of nausea vomiting. PROCEDURE PERFORMED: Esophagogastroduodenoscopy with biopsy. PREOPERATIVE DIAGNOSIS: Follow-up gastric anastomotic ulcer. IV sedation per anesthesia. PROCEDURE: After informed consent was obtained, the patient was brought into the endoscopy unit. IV sedation was administered by Anesthesia under continuous monitoring. Initially the Olympus GIF-140 video endoscope was inserted into the mouth. Esophagus intubated without any difficulty. It was gradually advanced into the stomach and duodenum and carefully examined. The bulb and the second part of the duodenum appeared normal. The scope at this time was withdrawn to the stomach, adequately insufflated with air, and upon careful examination, mucosa of the antrum, body, cardia and the fundus appeared normal. The scope was then withdrawn into the esophagus. The GE junction was located at 39 cm from the incisors. The esophagus appeared normal. There were no erosions or ulcerations seen and the patient tolerated the procedure well. IMPRESSION: 1. 2 cm clean-based gastric anastomotic ulcer. 2. Evidence of gastric bypass surgery with Ayesha-en-Y bypass. RECOMMENDATIONS: The findings of this examination were discussed with the patient as well as a family. She was advised to continue with Protonix 40 mg daily and will plan a repeat upper endoscopy in 6 months..
[2021-02-10 10:59] VITALS: BP 126/70; PULSE 73; RESP 16
== END 2021-02-10 11:16 | disposition home or self-care (01) ==
LOC: ORWHC2ENDO 09:13
PROVIDERS: ATTEND Internal Medicine Gastroenterology
DX: Z98.84 Bariatric surgery status (principal); T85.898A Other specified complication of other internal prosthetic devices, implants and grafts, initial encounter; Y83.2 Surgical operation with anastomosis, bypass or graft as the cause of abnormal reaction of the patient, or of later complication, without mention of misadventure at the time of the procedure; I10 Essential (primary) hypertension; E78.5 Hyperlipidemia, unspecified; R73.03 Prediabetes; M19.90 Unspecified osteoarthritis, unspecified site; K21.9 Gastro-esophageal reflux disease without esophagitis; Z87.442 Personal history of urinary calculi; Z79.899 Other long term (current) drug therapy
CPT/HCPCS: 88305; 43239; J2001; J2704